=== PATIENT | male | born 1955 | race Caucasian/White ===

== ENCOUNTER 2016-08-14 19:21 | Inpatient (IN) ==
[2016-08-14 19:43] LABS: MANUAL DIFF NEEDED? NO
[2016-08-14 19:48] LABS: BASO% 0.2 % (0.0-0.8); EOS% 6.9 % (0.0-10.0); HEMATOCRIT 36.7 % (42.0-52.0); HEMOGLOBIN 12.3 g/dL (14.0-18.0); IMM GRAN# 0.03 X1000 (0.0-0.04); IMM GRAN% 0.7 % (0.0-0.5); LYMPH# 0.93 X1000 (1.2-3.4); LYMPH% 21.4 % (20.5-51.1); MCH 30.6 PG (27-31); MCHC 33.5 g/dL (33-37); MCV 91.3 FL (81-99); MONO# 0.63 X1000 (0.11-0.59); MONO% 14.5 % (1.7-9.3); MPV 10.4 FL (7.4-10.4); NEUT% 56.3 % (42.2-75.2); PLT 107 X1000 (130-400); RBC 4.02 XMIL (4.7-6.1)
[2016-08-14 20:02] LABS: AGAP 13; ALBUMIN 3.7 g/dL (3.5-5.0); ALKALINE PHOSPHATASE 66 U/L (32-122); BUN 14 mg/dL (8-22); CHLORIDE 95 mmol/L (98-107); COSMO 271; GOT 24 U/L (10-34); GPT 12 U/L (10-44); POTASSIUM 4.3 mmol/L (3.5-5.1); SODIUM 135 mmol/L (136-145); TCO2 27 mmol/L (25-35); TOTAL BILIRUBIN 0.96 mg/dL (0.20-1.00); TOTAL PROTEIN 6.6 g/dL (6.3-8.3)
[2016-08-14 20:23] LABS: PROTIME > 100.0 Seconds (9.2-11.7)
[2016-08-14 20:25] LABS: INR > 11.25
--- NOTE | 2016-08-14 21:16 | PROVIDER DOCUMENTATION ---
HPI-General Adult - General Chief Complaint: Abnormal Lab[s] Stated Complaint: ABNORMAL LABS Time Seen by Provider: 08/14/16 20:13 Source: patient, family Allergies/Adverse Reactions: Patient Allergies Allergy/AdvReac Type Severity Reaction Status Date / Time No Known Allergies Allergy Verified 08/14/16 19:39 Home Medications: Home Medication List Medication Instructions Recorded Confirmed Last Taken Type Aspirin 81 mg PO DAILY 12/09/14 02/29/16 02/29/16 07:00 History Atorvastatin Calcium [Lipitor] 80 mg PO HS 12/09/14 02/29/16 02/28/16 20:00 History Metoprolol Succinate 50 mg PO DAILY 12/09/14 02/29/16 02/29/16 07:00 History Nitroglycerin [Nitrostat] 0.3 mg SL DIRECTED PRN 12/09/14 02/29/16 Unknown History Sildenafil [Viagra] 50 mg PO PRN PRN 12/09/14 02/29/16 1 Month Ago History Trazodone [Desyrel] 100 mg PO HS 12/09/14 02/29/16 02/28/16 20:00 History Warfarin Sodium 2.5 mg PO DAILY 12/09/14 02/29/16 02/29/16 07:00 History Albuterol Sulfate Inhaler 2 inhaler INH Q4H PRN PRN 01/10/15 02/29/16 01/10/15 08:00 History [Ventolin Hfa] Ascorbic Acid [Vitamin C] 1,500 mg PO DAILY 01/10/15 02/29/16 02/29/16 07:00 History Jackson-3 Fatty Acids [Fish Oil] 1,000 mg PO DAILY 01/10/15 02/29/16 02/29/16 07: 00 History Amiodarone [Cordarone] 200 mg PO DAILY #30 tablet 01/14/15 02/29/16 02/29/16 07: 00 Rx Furosemide [Lasix] 40 mg PO DAILY #0 tablet 01/14/15 02/29/16 02/29/16 07:00 Rx - History of Present Illness -Gen Adult Nature of Presenting Problems: 60 year old WM presents with c/o abnormal labs and coughing up blood. pt reports he was evaluated by his elephant keeper today in [place] ,had labs drawn and was driving home when he received a call from his elephant keeper reporting his INR was 10 and referred him to the nearest ED. pt currently takes coumadin for an artificial heart valve. pt reports he has recently eaten extra green vegetables. pt denies physical complaints. denies fall or trauma. Location of Pain/Injury: reports: none Pain Radiation: reports: no radiation Review of Systems - Adult - REVIEW OF SYSTEMS - ADULT Constitutional: reports: no symptoms reported. denies: chills, fever, fatique Eyes: reports: no symptoms reported. denies: discharge, blurred vision, double vision, redness Ears, Nose, Mouth & Throat: reports: no symptoms reported. denies: ear discharge, ear pain, nose pain, loose teeth, throat pain, throat swelling Cardiovascular: reports: no symptoms reported. denies: chest pain, heart murmur , irregular heart rate, orthopnea, palpitations, poor circulation, PND, syncope Respiratory: reports: see HPI, hemoptysis. denies: chronic cough, cough, shortness of breath, wheezing Gastrointestinal: reports: no symptoms reported. denies: abdominal pain, diarrhea, nausea, vomiting Genitourinary: reports: no symptoms reported. denies: dysuria, hematuria, urgency Musculoskeletal: reports: no symptoms reported. denies: bone pain, joint pain, joint swelling, neck pain Integumentary: reports: no symptoms reported. denies: hives, itching, rash, skin thickening Neurological: reports: no symptoms reported. denies: ataxia, dizziness/vertigo , headache/migraines Psychiatric: reports: no symptoms reported Endocrine: reports: no symptoms reported Hematologic/Lymphatic: reports: no symptoms reported Allergic/Immunologic: reports: no symptoms reported All Other Systems: Reviewed and Negative Past History - Adult - PAST MEDICAL HISTORY-ADULT Review of Records: reports: Old Records Reviewed, Nursing Assessment Review, Medications Reviewed, Social history reviewed & non-contributory. Major Childhood Illnesses: reports: denies history Cardiovascular: reports: cardiac disease, A-Fib, aortic disease, CAD, HTN, heart valve problem, hyperlipidemia, other (aortic valve replacement with mechanical valve) Respiratory: reports: COPD Gastrointestinal: reports: denies history Obstetrical/Gynecological: reports: denies history Genitourinary: reports: denies history Musculoskeletal: reports: denies history Neurological: reports: denies history Psychiatric: reports: denies history Endocrine/Immune: reports: denies history Other Conditions: reports: denies history - PRIOR SURGERIES/PROCEDURES Surgical/Procedure History: reports: CABG, other (aortic valve replacement) - IMMUNIZATION STATUS Childhood Immunizations: See Nurse Assessment Flu Vaccine: See Nurse Assessment - FAMILY HISTORY Family History: reviewed, not pertinent - SOCIAL HISTORY Smoking: quit greater than 1 year, cigarettes Substance Use: alcohol Alcohol Use Frequency: every day Number of drinks per typical drinking period:: 3-4 drinks Living Situation: family Physical Exam-General - PHYSICAL EXAM-ADULT Initial Vital Signs Reviewed: Yes - CONSTITUTIONAL General Appearance: appears well, alert, no apparent distress. negative: mild distress, moderate distress, severe distress, cachetic, obese, lethargic, slow to respond, obtunded, combative - EYES Eyes: pink conjunctivae. negative: conjuctival exudate, pale conjunctivae, sclera injected, scleral icterus, subconjunctival hemorrhage - HEAD, EARS, NOSE, MOUTH & THROAT HENMT: normocephalic/atraumatic, moist mucous membranes, normal ENT inspection, TMs normal, pharynx normal - NECK Neck: non-tender, full range of motion, supple, normal inspection. negative: C- spine tenderness, limited range of motion, tender lateral, tender midline - RESPIRATORY Respiratory: chest non-tender, lungs clear, normal breath sounds, no pleuratic chest pain, no respiratory distress, no accessory muscle use. negative: respiratory distress, decreased breath sounds, accessory muscle use, crackles, rales, rhonchi, stridor, wheezing, pain on inspiration - CARDIOVASCULAR Cardiovascular: normal peripheral pulses, regular rate, rhythm, no edema, no gallop, no JVD, no murmur - CHEST (BREASTS) Chest/Breast: no tenderness - GASTROINTESTINAL (ABDOMEN) Abdominal Exam: normal bowel sounds, non tender, soft. negative: distended, guarding, rigid, tenderness - GENITOURINARY Male Genitalia: deferred Rectal Exam: deferred Hemoccult Exam: deferred - LYMPHATIC Lymphatic: no adenopathy - MUSCULOSKELETAL Back Exam: normal inspection, no CVA tenderness, no vertebral tenderness. negative: CVA tenderness, decreased range of motion, swelling, vertebral tenderness Extremity: normal range of motion, non-tender, normal gait, normal inspection, no pedal edema, no calf tenderness, normal capillary refill. negative: deformity, erythema, inflammation, joint effusion Peripheral Pulses: radial (R): 3+, radial (L): 3+, dorsalis-pedis (R): 3+, dorsalis-pedis (L): 3+ - SKIN Integumentary: normal color, normal turgor, warm/dry, ecchymosis (left lateral arm with ecchymosis). negative: petechiae - NEUROLOGIC Neurologic: grossly normal, no motor/sensory deficits - PSYCHIATRIC Psych/Mental Status: normal mood/affect, normal thought content, normal thought process, oriented x 3 Progress - PLAN OF CARE/RESULTS Progress/Plan/Lab Results: Laboratory Tests 08/14/16 08/14/16 08/14/16 19:37 19:37 19:37 WBC 4.34 L RBC 4.02 L Hgb 12.3 L Hct 36.7 L MCV 91.3 MCH 30.6 MCHC 33.5 RDW Std Deviation 14.4 Plt Count 107 L MPV 10.4 Immature Gran % (Auto) 0.7 H Neut % (Auto) 56.3 Lymph % (Auto) 21.4 [place] % (Auto) 14.5 H Eos % (Auto) 6.9 Baso % (Auto) 0.2 Immature Gran # (Auto) 0.03 Neut # (Auto) 2.44 Lymph # (Auto) 0.93 L [place] # (Auto) 0.63 H Eos # (Auto) 0.30 Baso # (Auto) 0.01 PT > 100.0 H INR > 11.25 H* Sodium 135 L Potassium 4.3 Chloride 95 L Carbon Dioxide 27 Anion Gap 13 BUN 14 Creatinine 0.9 Estimated GFR/1.73 m2 > 60 BUN/Creatinine Ratio 16 Glucose 99 Calculated Osmolality 271 Calcium 9.0 Total Bilirubin 0.96 AST 24 ALT 12 Alkaline Phosphatase 66 Total Protein 6.6 Albumin 3.7 Globulin 2.9 Albumin/Globulin Ratio 1.3 Orders Category Date Time Status Transfuse .Give-Transfuse Care 08/14/16 20:58 Active CHEST-2 VIEWS [RAD] Stat Exams 08/14/16 19:44 Taken CBC WITH DIFF [HEME] Stat Lab 08/14/16 19:37 Completed COMPREHENSIVE METABOLIC PANEL [CHEM] Stat Lab 08/14/16 19:37 Completed FFP [FRESH FROZEN PLASMA] [BBK] Stat Lab 08/14/16 21:14 Received PT [PROTIME WITH INR] [COAG] Stat Lab 08/14/16 19:37 Completed TYPE & SCREEN [BBK] Stat Lab 08/14/16 21:14 Received UA NIMS W/REFLEX CULT [URINALYSIS] Stat Lab 08/14/16 21:22 Ordered EKG [EKG] Stat Ther 08/14/16 20:57 Ordered Vital Signs - 24 hr 08/14/16 19:33 Temperature 98.0 F Pulse Rate 57 L Respiratory 16 Rate Blood Pressure 158/64 O2 Sat by Pulse 96 Oximetry - XRAY 1 XRAY Study: Chest Impression: Normal (Dr. Melo) - CONSULTS/PCP/HOSPITALIST Notification #1 *Consult/PCP/Hospitalist*: Dr. Blunt Time Discussed: 21:04 Consult Disposition: Will see in ED, Admit Departure - Departure Time of Disposition Order: 21:15 DIAGNOSIS: Supratherapeutic INR Disposition: ADMITTED INPATIENT 09 Certified Medical Emergency: Emergent Condition: Stable Referrals: Margo Covarrubias MD [Primary Care Provider] - Attestation - Physician/ HODA Attestation Patient care was provided by Advanced Practice Provider:: Yes Advanced Practice Provider:: Eric Gates Advanced Practice Provider documentation review:: The Mid-level provider documentation, treatment plan and medical decision making was reviewed by the physician who agrees with all treatment and medical decision making by the MLP.
[2016-08-14 21:31] LABS: URINE CULTURE NEEDED? NO; URINE MICRO REVIEW NEEDED? NO; URINE SOURCE CLEAN CATCH
[2016-08-14 21:35] LABS: BILIRUBIN URINE NEGATIVE (NEGATIVE); BLOOD URINE NEGATIVE (NEGATIVE); COLOR YELLOW; GLUCOSE URINE NEGATIVE (NEGATIVE); LEUKOCYTES URINE NEGATIVE (NEGATIVE); NITRITE URINE NEGATIVE (NEGATIVE); PROTEIN URINE NEGATIVE (NEGATIVE); SP GRAVITY URINE 1.011; TURBIDITY URINE CLEAR (CLEAR); UROBILINOGEN URINE 2 mg/dL (NORMAL)
[2016-08-14 21:36] LABS: UR EPITHELIAL CELLS <10 /HPF (<10); URINE BACTERIA NEGATIVE /HPF; URINE RBC <10 /HPF (<10); URINE WBC <10 /HPF (<10)
--- NOTE | 2016-08-14 22:18 | ED EKG INTERP ---
EKG Interpretation - EKG Time of EKG reading by physician:: 21:50 EKG Read and Signed by:: Antony Marcial EKG Interpretation (*Must complete 3 of following elements*): Abnormal (L axis deviation; Voltage criteria for LVH; Nonspecific ST & T wave abnormality) Rate: 53 Rhythm: Sinus bradycardia Attestation - Scribe Verification/Attestation Scribe:: Richard Puri Acting as Scribe for:: Antony Marcial Scribj carlos documention review:: This chart was documented by a scribe and accurately reflects the service the provider performed and the decisions made by the provider.
[2016-08-14] MEDS ORDERED: NS 1,000 ML ONE (22:45)
--- NOTE | 2016-08-15 03:26 | HISTORY AND PHYSICAL ---
REASON FOR ADMISSION: Hemoptysis today. HISTORY OF PRESENT ILLNESS: Sudheer Jara is a 60-year-old male with a past medical history of coronary artery disease, status post CABG, status post mitral valve replacement, the first one 2000 which was a bioprosthetic valve and the second more recently in 2009, mechanical valve. Also has a past medical history of atrial fibrillation, COPD, hyperlipidemia. He is followed by a physician at [facility] for his cardiology management. Today, he went to [place] to get his blood drawn and was called by the ER at [place] that he needed to go to the [facility] ER. On arrival here, his INR was greater than 11.25. He reports only hemoptysis 5 times today since all this started. He denies any hematuria, hematochezia, or melenic stools, or any bleeding from any other orifice. He denies any cardiorespiratory complaints. He denies any use of any [id number] NSAIDs. He denies any dizziness, weakness. No abdominal pains. No chest pains or anginal equivalent. No PND or orthopnea. No rash. No neurological complaints or headaches. REVIEW OF SYSTEMS: Twelve system review is negative. Positive findings per HPI. ALLERGIES: No known allergies. HOME MEDICATIONS: No active current medication list available at this time but in 2014, he was taking Viagra 50 mg p.r.n., aspirin 81 mg daily, atorvastatin 80 mg daily, trazodone 100 mg at bedtime, Toprol 50 mg daily, Coumadin 2.5 mg daily, Lasix 40 mg daily, amiodarone 200 mg daily, omega fish 1000 mg daily, vitamin C 1500 mg daily, Ventolin 2 puffs q.4 p.r.n. PAST SURGICAL HISTORY: Notable for CABG, two mitral valve replacements, thoracic aneurysm repair, hernia repair, hemorrhoidectomy repair, carpal tunnel surgery. SOCIAL HISTORY: Former smoker, quit in 2000. Drinks alcohol. He lives with his spouse and does not use illicit drugs. Drinks alcohol "socially". FAMILY HISTORY: Positive for coronary artery disease, lung cancer, and colon cancer. LABORATORY WORK: White count 4000, hemoglobin and hematocrit 12 and 36, platelets 107,000. Sodium 135, BUN 14, creatinine 0.9. PT 100, INR greater than 11.25. Urinalysis clean, no blood. Troponin is pending. EKG showed normal sinus rhythm with left axis deviation, possible LVH, nonspecific ST-wave changes. PHYSICAL EXAMINATION: VITAL SIGNS: Blood pressure is 139/69, heart rate 51, respirations 20, temperature is 97.9, 96 on room air. GENERAL: He is a pleasant, middle-aged, man who is not in acute distress. He is A and O x3. He has normal mood and affect. HEENT: Head is normocephalic, atraumatic. Eyes, LIZZETH, EOMI. He is anicteric and not pale. ENT and oral exam is grossly normal. No central cyanosis. NECK: Supple. No JVD or carotid bruit. No thyromegaly. CHEST: Clear to auscultation with good entry in both lung beck. CARDIOVASCULAR: First and second heart sounds heard. He had a notable click with a 2/6 ejection systolic murmur. Rhythm is regular. ABDOMEN: Protuberant, soft, nontender. No mass or organomegaly. Bowel sounds are normal. RECTAL: Examination deferred at this time. EXTREMITIES: He has 1+ pitting edema. Pulses distally intact. No clubbing. Pulses distally intact with good volume. No clubbing or peripheral cyanosis. NEUROLOGIC: No focal deficits. SKIN: Intact with no breakdown, lesions, or erythema. No ecchymosis or petechia noted. MUSCULAR: Examination is grossly normal. ASSESSMENT: 1. Coumadin toxicity. 2. Hemoptysis. 3. Thrombocytopenia. 4. Coronary artery disease. 5. Peripheral arterial disease. 6. Hypertension. 7. Hyperlipidemia. PLAN: At this time, we will start the patient on FFP to reverse the toxic effects of Coumadin. If need be, if there is no response after receiving 4 units, may benefit from extremely low doses of vitamin K orally. We will consult hematology for further input regarding thrombocytopenia and Coumadin toxicity. Hopefully, once patient's INR is less than 4 and he is stable with no further drop in his hemoglobin and hematocrit, he can be discharged hopefully in the next day or two. We will discontinue fish oil as this too can exacerbate bleeding.
[2016-08-15 03:58] LABS: MANUAL DIFF NEEDED? NO
[2016-08-15 04:07] LABS: BASO% 0.3 % (0.0-0.8); EOS# 0.18 X1000 (0.0-0.7); EOS% 5.2 % (0.0-10.0); HEMATOCRIT 30.9 % (42.0-52.0); HEMOGLOBIN 10.3 g/dL (14.0-18.0); IMM GRAN# 0.02 X1000 (0.0-0.04); IMM GRAN% 0.6 % (0.0-0.5); LYMPH% 11.6 % (20.5-51.1); MCH 30.7 PG (27-31); MCHC 33.3 g/dL (33-37); MONO# 0.43 X1000 (0.11-0.59); MONO% 12.4 % (1.7-9.3); MPV 9.9 FL (7.4-10.4); NEUT% 69.9 % (42.2-75.2); PLT 70 X1000 (130-400); RBC 3.36 XMIL (4.7-6.1)
[2016-08-15 04:14] LABS: INR 2.3; PROTIME 24.6 Seconds (9.2-11.7)
[2016-08-15 04:24] LABS: AGAP 12; ALKALINE PHOSPHATASE 65 U/L (32-122); BUN 12 mg/dL (8-22); CALCIUM 8.9 mg/dL (8.8-10.2); CHLORIDE 97 mmol/L (98-107); COSMO 277; GOT 35 U/L (10-34); GPT 15 U/L (10-44); POTASSIUM 4.2 mmol/L (3.5-5.1); SODIUM 139 mmol/L (136-145); TCO2 30 mmol/L (25-35); TOTAL BILIRUBIN 0.79 mg/dL (0.20-1.00); TOTAL PROTEIN 6.2 g/dL (6.3-8.3)
--- NOTE | 2016-08-15 05:27 | EKG Report ---
Test Performed on : 08/14/2016 9:50:04 PM Test Reason : CP Blood Pressure : / mmHG Vent. Rate : 053 BPM Atrial Rate : 053 BPM P-R Int : 204 ms QRS Dur : 114 ms QT Int : 486 ms P-R-T Axes : 035 -51 075 degrees QTc Int : 456 ms Sinus bradycardia. Left axis deviation Voltage criteria for left ventricular hypertrophy Nonspecific ST and T wave abnormality Abnormal ECG When compared with ECG of 14-JAN-2015 15:23, T wave inversion no longer evident in Anterior leads Unconfirmed Result
--- NOTE | 2016-08-15 07:01 | Diag Imaging Result Document ---
PROCEDURE NAME: CHEST-2 VIEWS - 08/14/2016 FRONTAL AND LATERAL CHEST, TWO VIEWS: COMPARISON: Compared to 01/24/2016. FINDINGS: Sternal wires are present and a heart valve has been replaced. The lungs are well expanded. The heart is mildly enlarged. The pulmonary vessels are small. No pleural effusions. No consolidation. IMPRESSION: 1. No pneumonia. 2. The patient may have emphysema. 3. Mild cardiomegaly.
[2016-08-15 07:35] LABS: INR 2.11
[2016-08-15 07:52] LABS: PROTIME 22.5 Seconds (9.2-11.7)
[2016-08-15] MEDS: TOPROL XL PO SCH (09:28)
[2016-08-15] MEDS: TESSALON PO SCH ×3 (09:28→16:06)
[2016-08-15] MEDS: LASIX PO SCH (09:28)
[2016-08-15] MEDS: VITAMIN C PO SCH (09:28)
[2016-08-15] MEDS: CORDARONE PO SCH (09:28)
[2016-08-15] MEDS: ASPIRIN PO SCH (09:28)
--- NOTE | 2016-08-15 16:51 | PROGRESS NOTE ---
DATE: 08/14/2016 SUBJECTIVE: Today Mr. Jara refers to be doing okay. He has not had any more hemoptysis. OBJECTIVE: Vital signs: Blood pressure is 133/51, pulse of 55, respirations 18, temperature is 99.5 degrees. General: Mr. Jara is a 60-year-old male. He was in bed, not seemingly distress. HEENT: Mucosa is pink and moist. Anicteric. Acyanotic. Neck: Supple. Chest: Good air entry bilateral. Cardiovascular: Regular rate and rhythm. There is a metallic click with pronounced at A2. Abdomen: Soft, nontender. Extremities: No pedal edema. VISUAL C DEVELOPER: Patient is alert and oriented x4. LABORATORY DATA: WBC is 3.46, hemoglobin is 10.3, platelet count of 70,000. INR is 2.11. Sodium is 139, potassium is 4.2. ASSESSMENT: 1. Coumadin-induced coagulopathy. This has been reversed with both with both 4 FFP transfusion and vitamin K. Patient had been started on Coumadin 5 but we will drop it to 2.5 today and repeat his INR tomorrow. 2. Pancytopenia. Etiology is unclear. Hematology/oncology is on board. So far vitamin B12 is low and folate is also borderline which we are going to replace them. 3. History of coronary artery disease. Patient is on aspirin and statin. 4. Peripheral vascular disease. 5. Hypertension. 6. Dyslipidemia. GENERAL PLAN: The patient is seems to be stable now. Does not have any overt bleed. We will need to keep his INR pretty much therapeutic because of the mechanical valve. Will start him on his Coumadin 2.5 and repeat this for tomorrow. We will replace his B12 and folate to see if it will help with the pancytopenia.
--- NOTE | 2016-08-15 18:22 | CONSULTATION ---
DATE OF CONSULTATION: 08/15/2016 REQUESTING PHYSICIAN: Dr. Blunt. REASON FOR CONSULTATION: Coumadin toxicity and thrombocytopenia. HISTORY OF PRESENT ILLNESS: Mr. Jara is 60-year-old male who is currently on Coumadin as he is status post mitral valve replacement x2, once in 2010 with a bovine valve and then again in 2009 with a mechanical valve. The patient also has a history of atrial fibrillation. He is also status post CABG x3. The patient is seen in [facility] in [place] in regards to his heart conditions and also in regards to his Coumadin. He was recently found to have an INR of 11.25. He also had hemoptysis upon presentation. He is now status post 4 units of fresh frozen plasma and his INR is now closer to therapeutic range at 2.11. Platelets have gone down to 70,000. Patient denies any previous history of thrombocytopenia. He also reports that he has been taking his Coumadin 5 mg on Wednesdays and Saturdays and 2.5 mg all other days. He denies any alterations in that. He denies doubling up on any of his medications. He also denies any nausea or vomiting or any new medications. He has not had any further hemoptysis since his INR has been corrected. PAST MEDICAL HISTORY: 1. Coronary artery disease. 2. Mitral valve dysfunction. 3. Atrial fibrillation. 4. COPD. 5. Hyperlipidemia. 6. Congestive heart failure. PAST SURGICAL HISTORY: 1. CABG x3. 2. Thoracic aneurysm repair. 3. Inguinal hernia repair bilaterally. 4. Hemorrhoidectomy. 5. Carpal tunnel release. 6. Mitral valve replacement x2. SOCIAL HISTORY: Former smoker. He quit back in 2000. The patient does drink alcohol socially. He lives with his . He denies any current tobacco or drug use. FAMILY HISTORY: Positive for coronary disease and lung and colon cancer. REVIEW OF SYSTEMS: As per the HPI. All else is negative or noncontributory. PHYSICAL EXAMINATION: Vital signs: Temperature 98.9 degrees, heart rate 59, respirations 19, blood pressure 154/54, O2 saturation 100% on room air. General: male sitting up in hospital bed in the emergency department. He is in no acute distress at this time. Head: Normocephalic, atraumatic. Eyes: Pupils equal, round, and symmetric. Ears, nose, throat, neck, and mouth: Oral mucosa is normal. Trachea is midline. Cardiovascular: S1, S2 are heard. You can hear the mechanical valve click. Regular rate and rhythm. Respiratory: Clear to auscultation bilaterally. Normal respiratory effort. No rhonchi, rales, or wheezing noted. Gastrointestinal: Abdomen is soft, nondistended. Positive bowel sounds. Nontender. Musculoskeletal: No bony abnormalities. Extremities: No edema or noted. Neurologic: The patient is alert and orient x3. No focal motor deficits. LABORATORY STUDIES: White blood cells 3.46, hemoglobin 10.3, hematocrit 30.9, platelets 70,000. PT is 22.5. INR is 2.11. Sodium 139, potassium 4.2, chloride 97, CO2 30, BUN 12, creatinine 0.8, glucose 96, bilirubin 0.79, AST and ALT are 35 and 15 respectively, and alkaline phosphatase is 65. ASSESSMENT AND PLAN: 1. Coumadin toxicity. After 4 units of fresh frozen plasma, his INR is now closer to therapeutic range. We will go ahead and restart his Coumadin at 5 mg tonight. Monitor PT/INR closely. We will do these daily. Again, he takes Coumadin 5 on Wednesdays and Saturdays and he takes 2.5 mg all other days. INR range from mechanical valve is 2.5 to 3.5. 2. Thrombocytopenia. Patient denies any exposure to heparin. He denies any previous issues with his platelets. Go ahead and check vitamin studies and platelet antibody studies. No active bleeding at this time. No need for transfusion at this time. 3. Coronary artery disease/atrial fibrillation/previous mitral valve replacement: Continue Coumadin as per above. All of these seem pretty stable at this time. He will follow up with [facility] as an outpatient once he is discharged. Thank you for allowing us to participate in Mr. Jara' care while he is here at [facility]. Will continue follow along and adjust our treatment plan per his hospital course. Dictated by JED Penn for Nanette Frausto MD
[2016-08-15] MEDS ORDERED: COUMADIN PO SCH (21:00)
[2016-08-15] MEDS: LIPITOR PO SCH (21:07)
[2016-08-15] MEDS: DESYREL PO SCH (21:07)
[2016-08-15] MEDS: COUMADIN PO SCH (21:07)
[2016-08-15] MEDS: PERCOCET-10 PO PRN (21:07)
[2016-08-16 06:59] LABS: MANUAL DIFF NEEDED? NO
[2016-08-16 07:16] LABS: INR 2.21; PROTIME 23.6 Seconds (9.2-11.7)
[2016-08-16 07:17] LABS: BASO% 0.4 % (0.0-0.8); EOS# 0.16 X1000 (0.0-0.7); EOS% 6.3 % (0.0-10.0); HEMATOCRIT 30.8 % (42.0-52.0); HEMOGLOBIN 10.1 g/dL (14.0-18.0); LYMPH# 0.45 X1000 (1.2-3.4); LYMPH% 17.7 % (20.5-51.1); MCH 30.1 PG (27-31); MCHC 32.8 g/dL (33-37); MCV 91.7 FL (81-99); MONO# 0.49 X1000 (0.11-0.59); MONO% 19.3 % (1.7-9.3); MPV 10.4 FL (7.4-10.4); NEUT% 56.3 % (42.2-75.2); PLT 65 X1000 (130-400); RBC 3.36 XMIL (4.7-6.1)
[2016-08-16 07:32] LABS: AGAP 10; BUN 13 mg/dL (8-22); CALCIUM 8.9 mg/dL (8.8-10.2); CHLORIDE 98 mmol/L (98-107); COSMO 271; POTASSIUM 3.5 mmol/L (3.5-5.1); SODIUM 135 mmol/L (136-145); TCO2 27 mmol/L (25-35)
[2016-08-16] MEDS: PERCOCET-10 PO PRN ×3 (07:38→22:59)
[2016-08-16] MEDS: TESSALON PO SCH ×3 (08:55→16:09)
[2016-08-16] MEDS: ASPIRIN PO SCH (08:55)
[2016-08-16] MEDS: VITAMIN B-12 PO SCH (08:55)
[2016-08-16] MEDS: VITAMIN C PO SCH (08:55)
[2016-08-16] MEDS: CORDARONE PO SCH (08:55)
[2016-08-16] MEDS: LASIX PO SCH (08:55)
[2016-08-16] MEDS: FOLIC ACID PO SCH (08:55)
[2016-08-16] MEDS: TOPROL XL PO SCH (08:58)
[2016-08-16 10:11] LABS: RETIC% 1.5 % (0.8-2.1); RETIC-HE 32.1 PG (28.2-36.6)
--- NOTE | 2016-08-16 11:25 | PROGRESS NOTE ---
DATE: 08/16/2016 SUBJECTIVE: Today Mr. Jara refers to be doing okay. He did not have any complains about bleeding. He has had no more coughing up any blood. OBJECTIVE: Vital Signs: On physical exam, blood pressure is 132/45, pulse of 52, respirations 18, temperature 98.5 degrees. General: Mr. Jara is a 60-year-old male. He was in bed and does not seem to be in any distress. HEENT: Mucosa is pink and moist. Anicteric. Acyanotic. Neck: The neck is supple. Chest: Good air entry bilaterally. A few bibasilar crepitations. Cardiovascular: Regular rate and rhythm. There is a metallic A2 with mild aortic regurgitation. Abdomen: Soft, nontender. Extremities: No pedal edema. Central Nervous System: The patient is alert and oriented x4. There is no focal neurological deficit. LABORATORY DATA: WBC is 2.54, hemoglobin is 10.1, platelet count of 65,000, reticulocyte count is 1.5. Chemistries reviewed and are unremarkable. INR is 2.21. ASSESSMENT AND PLAN: 1. Coumadin-induced coagulopathy. The patient had 4 fresh frozen plasma transfusion and a vitamin K injection. INR is now therapeutic. We will continue with the Coumadin at 2.5. 2. Pancytopenia. The patient has a reticulocyte production index of 0.5, which is consistent with hypoproliferative bone marrow. So far, vitamin B12 and folate were low, so we are replacing this. However, I think somewhere along the line, the patient might need a bone marrow biopsy, which can be done outpatient. 3. History of coronary artery disease. The patient is on aspirin and statin. 4. Peripheral vascular disease, stable. 5. Hypertension, controlled. 6. Dyslipidemia, stable. GENERAL PLAN: Our general plan, the patient is doing fine. He is not anymore having any bleeding. We have him on Coumadin 2.25, and his INR is therapeutic. Of concern is his pancytopenia, which I think is due to hypoproliferative bone marrow. He will probably need the bone marrow looked at at a later date. I will be waiting on Hematology/Oncology to evaluate him today. If they are okay with his numbers, especially his numbers with regards to the pancytopenia, then we can discharge him, and they will follow him up on an outpatient basis.
[2016-08-16] MEDS: DESYREL PO SCH (20:31)
[2016-08-16] MEDS: COUMADIN PO SCH (20:31)
[2016-08-16] MEDS: LIPITOR PO SCH (20:31)
[2016-08-17 06:43] LABS: INR 2.08
[2016-08-17 06:52] LABS: PROTIME 22.2 Seconds (9.2-11.7)
[2016-08-17 07:38] VITALS: BP 136/49
[2016-08-17] MEDS: VITAMIN C PO SCH (08:57)
[2016-08-17] MEDS: TESSALON PO SCH (08:57)
[2016-08-17] MEDS: TOPROL XL PO SCH (08:57)
[2016-08-17] MEDS: FOLIC ACID PO SCH (08:57)
[2016-08-17] MEDS: ASPIRIN PO SCH (08:57)
[2016-08-17] MEDS: LASIX PO SCH (08:57)
[2016-08-17] MEDS: CORDARONE PO SCH (08:57)
[2016-08-17] MEDS: VITAMIN B-12 PO SCH (08:57)
[2016-08-17] MEDS: PERCOCET-10 PO PRN (10:12)
--- NOTE | 2016-08-17 12:19 | DISCHARGE SUMMARY ---
ADMISSION DATE: 08/14/2016 DISCHARGE DATE: 08/17/2016 CONSULTATION: Dr. Nanette Frausto with Oncology. DISCHARGE DIAGNOSES: 1. Coumadin induced coagulopathy. Patient received 4 units of FFP and vitamin K injection. INR is now therapeutic. Patient will continue on Coumadin 2.5 at discharge. 2. Pancytopenia. Reticulocyte production index of 0.5 which is consistent with hypoproliferative bone marrow. 3. Vitamin B12 and folate deficiency. Continue supplementation. Again patient may need a bone marrow biopsy done as outpatient. 4. Coronary artery disease history. Continue aspirin and statin. 5. Peripheral vascular disease, stable. 6. Hypertension, controlled. 7. Dyslipidemia stable. HOSPITAL COURSE: Briefly, Mr. Jara is a 60-year-old male with a past medical history of coronary artery disease status post CABG, status post MVR. X 2. The 1st one was in 2000 which was a bioprosthetic valve, and the second one more recently in 2009 with mechanical atrial fibrillation, COPD, and hyperlipidemia followed by a physician at [facility] for his cardiology management. On the day of admission, the patient went to [place] to get his blood drawn and was called by the ED at [place] that he needed to get to the hospital to the nearest ED. On arrival, his INR was greater than 11.25. He reports hemoptysis 5 times on the day of admission since it all started. Denies any hematuria or melenic stools or any bleeding from any other orifice. No cardiorespiratory complaints. Denied the use of any over- the-counter NSAIDs. The patient was admitted for Coumadin toxicity as well as thrombocytopenia. He was started on FFP as well as vitamin K. Hematology was consulted for further input regarding thrombocytopenia and his Coumadin toxicity, as well as his Coumadin was held and his fistula was discontinued as it could exacerbate bleeding. Dr. Nanette Frausto did assess the patient with hematology, received a total of 4 units of FFP. His INR was closer to a therapeutic range. She did go ahead and restart his Coumadin and monitor his PT and INRs closely. The patient does take Coumadin 5 mg on Wednesdays and Saturdays, and he takes 2.5 mg all other days. The INR range for a mechanical valve is 2.5 to 3.5. In reference to his thrombocytopenia, he denied any exposure to heparin or any previous issues with his platelets. There was no active bleeding. No need for transfusions. The patient's vitamin B12 as well as folate were low, so he was started on supplementation and they feel that he may need a bone marrow biopsy at some point on an outpatient basis. The patient has been doing fine and no episodes of bleeding. No more hemoptysis. Hematology is okay for the patient to be discharged back home today on his Coumadin. PHYSICAL EXAMINATION: Vital signs: At time of discharge, temperature is 98 degrees, heart rate 83, respirations 20, blood pressure 136/49, O2 is 95% on room air. DISCHARGE DIET: Healthy heart. DISCHARGE MEDICATIONS: 1. Nitrostat 0.3 mg sublingual as directed p.r.n. 2. Viagra 50 mg p.o. p.r.n. 3. Aspirin 81 g p.o. daily. 4. Lipitor 80 mg p.o. at bedtime. 5. Vistaril 100 mg p.o. at bedtime. 6. Metoprolol 50 mg p.o. daily. 7. Warfarin 2.5 mg p.o. daily. 8. Ventolin two puffs inhaled q.4 hours p.r.n. 9. Vitamin C 1500 mg p.o. daily. 10. Fish oil 1000 mg p.o. daily. 11. Percocet 10/325 one each p.o. p.r.n. 12. Amiodarone 200 mg p.o. daily. 13. Lasix 40 mg p.o. daily. 14. Vitamin B12 1000 mcg p.o. daily. 15. Folic acid 1 mg p.o. daily. FOLLOWUP: The patient is being discharged home with his spouse. He can follow up with his primary care physician in 7-10 days. Follow up with Dr. Nanette Frausto as needed , as well as his billing services manager in [place]. Patient can return to the ED for any worsening of symptoms. DISCHARGE TIME: 30 minutes. Dictated by MAURA Bazan for Theodore Garay MD MTDD
== END 2016-08-17 13:52 | disposition home or self-care (01) | DRG 813 ==
LOC: ED 19:21 → EDIPHOLD 19:22 → 3N 08-15 11:35
PROVIDERS: ATTEND Internal Medicine
PROC: 30233K1 Transfusion of Nonautologous Frozen Plasma into Peripheral Vein, Percutaneous Approach (ICD-10-PCS; principal; 2016-08-14)
DX: D68.32 Hemorrhagic disorder due to extrinsic circulating anticoagulants (principal); D61.818 Other pancytopenia; R04.2 Hemoptysis; I11.0 Hypertensive heart disease with heart failure; I50.9 Heart failure, unspecified; I48.91 Unspecified atrial fibrillation; E53.8 Deficiency of other specified B group vitamins; I25.10 Atherosclerotic heart disease of native coronary artery without angina pectoris; I73.9 Peripheral vascular disease, unspecified; E78.5 Hyperlipidemia, unspecified; J44.9 Chronic obstructive pulmonary disease, unspecified; T45.515A Adverse effect of anticoagulants, initial encounter; D75.89 Other specified diseases of blood and blood-forming organs; Z95.2 Presence of prosthetic heart valve; Z79.899 Other long term (current) drug therapy; Z79.01 Long term (current) use of anticoagulants; Z79.82 Long term (current) use of aspirin; Z95.1 Presence of aortocoronary bypass graft; Z87.891 Personal history of nicotine dependence; Z82.49 Family history of ischemic heart disease and other diseases of the circulatory system; Z80.1 Family history of malignant neoplasm of trachea, bronchus and lung; Z80.0 Family history of malignant neoplasm of digestive organs
CPT/HCPCS: 36430; 71020; 80048; 80053; 81001; 82607; 82746; 84484; 85025; 85045; 85610; 86022; 86023; 86850; 86870; 86900; 86901; 86922; 93005; J7040; P9017; 99285-25